=== PATIENT | female | born 1965 | race Hispanic/Latino ===

== ENCOUNTER 2021-10-15 17:12 | Emergency (ER) | payer SELFPAY ==
[~2021-10-15] VITALS: Ht 165.1 cm; Wt 89.1 kg
[~2021-10-15 17:12] MED LIST: ACTOS30 MG PO; GLIPIZIDE10 MG PO; LIPITOR20 M1 PO; LISINOPRIL20 MG PO; METFORMIN500 MG PO
[2021-10-15 17:48] VITALS: BP 165/86
[2021-10-15 18:00] VITALS: BP 146/77
[2021-10-15 18:15] VITALS: BP 147/73
[2021-10-15 18:30] VITALS: BP 142/78
[2021-10-15 18:46] VITALS: BP 158/75
[2021-10-15 18:55] VITALS: BP 158/75
== END 2021-10-15 19:12 | disposition home or self-care (01) | DRG 605 ==
LOC: ED 17:12
DX: S90.122A Contusion of left lesser toe(s) without damage to nail, initial encounter (principal); E11.9 Type 2 diabetes mellitus without complications; E78.5 Hyperlipidemia, unspecified; Z79.84 Long term (current) use of oral hypoglycemic drugs; W22.09XA Striking against other stationary object, initial encounter; Y92.009 Unspecified place in unspecified non-institutional (private) residence as the place of occurrence of the external cause

== ENCOUNTER 2021-11-14 19:03 | Inpatient (IN) | payer SELFPAY ==
[2021-11-14] VITALS (14 sets, daily range): BP systolic 119–200; BP diastolic 60–104
[~2021-11-14] VITALS: Ht 165.1 cm; Wt 86.0 kg
[~2021-11-14 19:03] MED LIST changes: -LIPITOR20 M1 PO; +LIPITOR80 M1 PO; +METFORMIN HCL1000 MG PO; -METFORMIN500 MG PO
[2021-11-14 19:50] LABS: IMMATURE GRANULOCYTES 0.1 % (0.0-5.0); MEAN CORPUSCULAR HGB CONC 32.2 g/dL CAL (32.0-36.0); NEUT# 7.81 thou/uL (2.00-7.15); RED BLOOD COUNT 4.9 mill/uL (4.20-5.60); RED CELL DISTRI WIDTH 13.2 % (11.5-15.5)
[2021-11-14 19:52] LABS: HEMATOCRIT 42.5 % (37.0-47.0); HEMOGLOBIN 13.7 g/dl (12.0-16.0); MEAN CELL VOLUME 86.7 fL CALC (80.0-100.0)
[2021-11-14 20:11] LABS: ALBUMIN 3.9 g/dL (3.2-5.0); AMYLASE 429 u/l (30-110); ANION GAP 13 (6-22 (CALC)); BUN 15 mg/dL (7-17); BUN/CREATININE RATIO 30 (12-20 (CALC)); CARBON DIOXIDE 21 mmol/l (22-30); CHLORIDE 105 mmol/l (95-108); CREATININE 0.5 mg/dL (0.5-1.0); GFR FOR AFR.AMER. > 60 ML/MIN (>=60 (CALC)); GFR OTHER RACES > 60 ML/MIN (>=60 (CALC)); POTASSIUM 3.7 mmol/l (3.5-5.1); SODIUM 136 mmol/l (137-146)
[2021-11-14 20:18] LABS: ALKALINE PHOSPHATASE 183 u/l (38-126); BILIRUBIN, TOTAL 1.7 mg/dL (0.0-1.4); SGOT/AST 181 u/l (14-36)
[2021-11-14 20:19] LABS: LIPASE 6589 u/l (23-300)
[2021-11-14 20:23] LABS: MYOGLOBIN 21 ng/mL (0 - 62)
[2021-11-15 04:56] VITALS: BP 141/62
[2021-11-15 05:51] LABS: HEMATOCRIT 41.1 % (37.0-47.0); HEMOGLOBIN 13.6 g/dl (12.0-16.0); MEAN CELL VOLUME 85.4 fL CALC (80.0-100.0); MEAN CORPUSCULAR HGB 28.3 pG CALC (26.0-32.0); MEAN CORPUSCULAR HGB CONC 33.1 g/dL CAL (32.0-36.0); RED BLOOD COUNT 4.81 mill/uL (4.20-5.60); RED CELL DISTRI WIDTH 13.4 % (11.5-15.5)
[2021-11-15 06:41] LABS: ALBUMIN 3.5 g/dL (3.2-5.0); ALKALINE PHOSPHATASE 206 u/l (38-126); ANION GAP 11 (6-22 (CALC)); BUN 13 mg/dL (7-17); BUN/CREATININE RATIO 27 (12-20 (CALC)); CARBON DIOXIDE 24 mmol/l (22-30); CHLORIDE 105 mmol/l (95-108); CREATININE 0.5 mg/dL (0.5-1.0); GFR FOR AFR.AMER. > 60 ML/MIN (>=60 (CALC)); GFR OTHER RACES > 60 ML/MIN (>=60 (CALC)); MAGNESIUM 1.8 mg/dL (1.6-2.3); POTASSIUM 3.9 mmol/l (3.5-5.1); SODIUM 136 mmol/l (137-146); TOTAL PROTEIN 6.1 g/dL (6.3-8.2)
[2021-11-15 06:42] LABS: BILIRUBIN, TOTAL 3.8 mg/dL (0.0-1.4); SGOT/AST 471 u/l (14-36)
[2021-11-15 07:24] VITALS: BP 168/82
[2021-11-15] MEDS ORDERED: LEVEMIR FL100 UNIT/M SC (12:59)
[2021-11-15] MEDS ORDERED: LEVOTHYROXIN75 MC1 PO (13:01)
[2021-11-15 15:56] VITALS: BP 164/84
[2021-11-15 19:20] VITALS: BP 138/65
[2021-11-15 23:10] VITALS: BP 106/54
[2021-11-16 05:25] LABS: HEMATOCRIT 39.4 % (37.0-47.0); HEMOGLOBIN 12.9 g/dl (12.0-16.0); MEAN CELL VOLUME 86.2 fL CALC (80.0-100.0); MEAN CORPUSCULAR HGB 28.2 pG CALC (26.0-32.0); MEAN CORPUSCULAR HGB CONC 32.7 g/dL CAL (32.0-36.0); NEUT# 5.3 thou/uL (2.00-7.15); RED BLOOD COUNT 4.57 mill/uL (4.20-5.60); RED CELL DISTRI WIDTH 13.7 % (11.5-15.5)
[2021-11-16 05:42] LABS: ALKALINE PHOSPHATASE 220 u/l (38-126); BUN 16 mg/dL (7-17); BUN/CREATININE RATIO 39 (12-20 (CALC)); CARBON DIOXIDE 22 mmol/l (22-30); CHLORIDE 108 mmol/l (95-108); CREATININE 0.4 mg/dL (0.5-1.0); GFR FOR AFR.AMER. > 60 ML/MIN (>=60 (CALC)); GFR OTHER RACES > 60 ML/MIN (>=60 (CALC)); SGOT/AST 164 u/l (14-36); SODIUM 135 mmol/l (137-146); TOTAL PROTEIN 5.6 g/dL (6.3-8.2)
[2021-11-16 05:44] LABS: ANION GAP 9 (6-22 (CALC)); POTASSIUM 3.6 mmol/l (3.5-5.1)
[2021-11-16 06:58] VITALS: BP 160/81
[2021-11-16 10:18] VITALS: BP 160/87
[2021-11-16 15:44] VITALS: BP 162/78
[2021-11-16 19:05] VITALS: BP 137/68
[2021-11-16 19:30] LABS: INTERNATIONAL NORMALIZED RATIO 1.2 RATIO (0.7-1.3); PROTHROMBIN TIME 12.6 SECONDS (9.0-12.5)
[2021-11-17 04:12] VITALS: BP 154/80
[2021-11-17 05:18] LABS: HEMATOCRIT 40.3 % (37.0-47.0); HEMOGLOBIN 13.1 g/dl (12.0-16.0); IMMATURE GRANULOCYTES 0.2 % (0.0-5.0); MEAN CORPUSCULAR HGB 28.3 pG CALC (26.0-32.0); MEAN CORPUSCULAR HGB CONC 32.5 g/dL CAL (32.0-36.0); NEUT# 3.78 thou/uL (2.00-7.15); RED BLOOD COUNT 4.63 mill/uL (4.20-5.60); RED CELL DISTRI WIDTH 13.3 % (11.5-15.5)
[2021-11-17 05:45] LABS: BILIRUBIN, TOTAL 3.8 mg/dL (0.0-1.4); DIRECT BILIRUBIN 1.5 mg/dl (0.0-0.3); TOTAL PROTEIN 5.8 g/dL (6.3-8.2)
[2021-11-17 05:52] LABS: ANION GAP 10 (6-22 (CALC)); BILIRUBIN, TOTAL 3.8 mg/dL (0.0-1.4); BUN 13 mg/dL (7-17); BUN/CREATININE RATIO 34 (12-20 (CALC)); CARBON DIOXIDE 23 mmol/l (22-30); CHLORIDE 103 mmol/l (95-108); CREATININE 0.4 mg/dL (0.5-1.0); DIRECT BILIRUBIN 1.4 mg/dl (0.0-0.3); GFR FOR AFR.AMER. > 60 ML/MIN (>=60 (CALC)); GFR OTHER RACES > 60 ML/MIN (>=60 (CALC)); POTASSIUM 3.4 mmol/l (3.5-5.1); SGOT/AST 138 u/l (14-36); SODIUM 133 mmol/l (137-146); TOTAL PROTEIN 5.7 g/dL (6.3-8.2)
[2021-11-17 06:00] LABS: ALKALINE PHOSPHATASE 348 u/l (38-126)
[2021-11-17 06:59] VITALS: BP 115/60
[2021-11-17 14:53] VITALS: BP 152/79
[2021-11-17 19:14] VITALS: BP 128/73
[2021-11-17 20:51] LABS: URINE BILIRUBIN - DIPSTICK LARGE (NEGATIVE); URINE BLOOD DIPSTICK NEGATIVE (NEGATIVE); URINE COLOR ORANGE; URINE GLUCOSE - DIPSTICK 100 mg/dL (NEGATIVE); URINE KETONE TRACE mg/dL (NEGATIVE); URINE LEUK ESTERASE NEGATIVE (NEGATIVE); URINE NITRITE - DIPSTICK NEGATIVE (Negative); URINE PROTEIN - DIPSTICK TRACE mg/dL (NEG-TRACE); URINE SPECIFIC GRAVITY 1.015
[2021-11-18] VITALS (7 sets, daily range): BP systolic 116–148; BP diastolic 60–78
[2021-11-18 05:10] LABS: HEMOGLOBIN 12.7 g/dl (12.0-16.0); IMMATURE GRANULOCYTES 0.4 % (0.0-5.0); MEAN CELL VOLUME 83.9 fL CALC (80.0-100.0); MEAN CORPUSCULAR HGB CONC 33.4 g/dL CAL (32.0-36.0); NEUT# 3.16 thou/uL (2.00-7.15); RED BLOOD COUNT 4.53 mill/uL (4.20-5.60); RED CELL DISTRI WIDTH 13.3 % (11.5-15.5)
[2021-11-18 05:27] LABS: ALKALINE PHOSPHATASE 372 u/l (38-126); ANION GAP 9 (6-22 (CALC)); BILIRUBIN, TOTAL 3.5 mg/dL (0.0-1.4); BUN 11 mg/dL (7-17); BUN/CREATININE RATIO 28 (12-20 (CALC)); CARBON DIOXIDE 26 mmol/l (22-30); CHLORIDE 103 mmol/l (95-108); CREATININE 0.4 mg/dL (0.5-1.0); DIRECT BILIRUBIN 1.1 mg/dl (0.0-0.3); GFR FOR AFR.AMER. > 60 ML/MIN (>=60 (CALC)); GFR OTHER RACES > 60 ML/MIN (>=60 (CALC)); POTASSIUM 3.3 mmol/l (3.5-5.1); SGOT/AST 106 u/l (14-36); SODIUM 135 mmol/l (137-146); TOTAL PROTEIN 5.8 g/dL (6.3-8.2)
[2021-11-19 04:00] VITALS: BP 152/70
[2021-11-19 04:04] VITALS: BP 152/70
[2021-11-19 05:15] LABS: HEMATOCRIT 36.8 % (37.0-47.0); HEMOGLOBIN 12.3 g/dl (12.0-16.0); IMMATURE GRANULOCYTES 0.2 % (0.0-5.0); MEAN CELL VOLUME 84.8 fL CALC (80.0-100.0); MEAN CORPUSCULAR HGB 28.3 pG CALC (26.0-32.0); MEAN CORPUSCULAR HGB CONC 33.4 g/dL CAL (32.0-36.0); NEUT# 3.11 thou/uL (2.00-7.15); RED BLOOD COUNT 4.34 mill/uL (4.20-5.60); RED CELL DISTRI WIDTH 13.4 % (11.5-15.5)
[2021-11-19 05:33] LABS: ALBUMIN 2.8 g/dL (3.2-5.0); ALKALINE PHOSPHATASE 405 u/l (38-126); ANION GAP 7 (6-22 (CALC)); BILIRUBIN, TOTAL 3.2 mg/dL (0.0-1.4); BUN 11 mg/dL (7-17); BUN/CREATININE RATIO 30 (12-20 (CALC)); CARBON DIOXIDE 28 mmol/l (22-30); CHLORIDE 104 mmol/l (95-108); CREATININE 0.4 mg/dL (0.5-1.0); GFR FOR AFR.AMER. > 60 ML/MIN (>=60 (CALC)); GFR OTHER RACES > 60 ML/MIN (>=60 (CALC)); POTASSIUM 3.3 mmol/l (3.5-5.1); SGOT/AST 91 u/l (14-36); SODIUM 136 mmol/l (137-146); TOTAL PROTEIN 5.5 g/dL (6.3-8.2)
[2021-11-19 06:10] VITALS: BP 162/82
[2021-11-19 14:59] VITALS: BP 167/75
[2021-11-19 19:05] VITALS: BP 149/68
[2021-11-19 19:31] VITALS: BP 149/68
[2021-11-20 03:54] VITALS: BP 132/71
[2021-11-20 04:28] VITALS: BP 132/71
[2021-11-20 05:29] LABS: HEMATOCRIT 37.1 % (37.0-47.0); IMMATURE GRANULOCYTES 0.3 % (0.0-5.0); MEAN CELL VOLUME 85.5 fL CALC (80.0-100.0); MEAN CORPUSCULAR HGB 27.6 pG CALC (26.0-32.0); MEAN CORPUSCULAR HGB CONC 32.3 g/dL CAL (32.0-36.0); NEUT# 3.6 thou/uL (2.00-7.15); RED BLOOD COUNT 4.34 mill/uL (4.20-5.60); RED CELL DISTRI WIDTH 13.6 % (11.5-15.5)
[2021-11-20 06:03] LABS: ALBUMIN 2.7 g/dL (3.2-5.0); ALKALINE PHOSPHATASE 429 u/l (38-126); ANION GAP 8 (6-22 (CALC)); BILIRUBIN, TOTAL 2.2 mg/dL (0.0-1.4); BUN 10 mg/dL (7-17); BUN/CREATININE RATIO 29 (12-20 (CALC)); CARBON DIOXIDE 27 mmol/l (22-30); CHLORIDE 105 mmol/l (95-108); CREATININE 0.4 mg/dL (0.5-1.0); GFR FOR AFR.AMER. > 60 ML/MIN (>=60 (CALC)); GFR OTHER RACES > 60 ML/MIN (>=60 (CALC)); POTASSIUM 3.8 mmol/l (3.5-5.1); SGOT/AST 67 u/l (14-36); SODIUM 136 mmol/l (137-146); TOTAL PROTEIN 5.4 g/dL (6.3-8.2)
[2021-11-20 06:55] VITALS: BP 141/75
[2021-11-20 15:28] VITALS: BP 157/75
[2021-11-20 16:19] VITALS: BP 162/81
[2021-11-20 19:25] VITALS: BP 162/73
[2021-11-21 04:30] VITALS: BP 138/58
[2021-11-21 04:59] LABS: HEMATOCRIT 38.7 % (37.0-47.0); HEMOGLOBIN 12.2 g/dl (12.0-16.0); IMMATURE GRANULOCYTES 1.3 % (0.0-5.0); MEAN CELL VOLUME 89.6 fL CALC (80.0-100.0); MEAN CORPUSCULAR HGB 28.2 pG CALC (26.0-32.0); MEAN CORPUSCULAR HGB CONC 31.5 g/dL CAL (32.0-36.0); NEUT# 6.98 thou/uL (2.00-7.15); RED BLOOD COUNT 4.32 mill/uL (4.20-5.60); RED CELL DISTRI WIDTH 14.6 % (11.5-15.5)
[2021-11-21 05:23] LABS: ALBUMIN 2.8 g/dL (3.2-5.0); ALKALINE PHOSPHATASE 393 u/l (38-126); ANION GAP 9 (6-22 (CALC)); BILIRUBIN, TOTAL 2.6 mg/dL (0.0-1.4); BUN 9 mg/dL (7-17); BUN/CREATININE RATIO 19 (12-20 (CALC)); CARBON DIOXIDE 28 mmol/l (22-30); CHLORIDE 100 mmol/l (95-108); CREATININE 0.5 mg/dL (0.5-1.0); GFR FOR AFR.AMER. > 60 ML/MIN (>=60 (CALC)); GFR OTHER RACES > 60 ML/MIN (>=60 (CALC)); MAGNESIUM 1.9 mg/dL (1.6-2.3); POTASSIUM 4.1 mmol/l (3.5-5.1); SGOT/AST 114 u/l (14-36); SODIUM 133 mmol/l (137-146); TOTAL PROTEIN 5.6 g/dL (6.3-8.2)
[2021-11-21 05:34] LABS: DIRECT BILIRUBIN 0.1 mg/dl (0.0-0.3)
[2021-11-21 06:49] VITALS: BP 138/70
[2021-11-21 08:35] VITALS: BP 138/70
[2021-11-21] MEDS ORDERED: LEVEMIR FL100 UNIT/M SC (14:17)
[2021-11-21] MEDS ORDERED: LORTAB 7.57.5 MG PO (14:22)
== END 2021-11-21 17:00 | disposition home or self-care (01) | DRG 419 ==
LOC: ED 19:03 → ED-I 21:20 → ED 21:44 → MS2 21:45
PROVIDERS: Emergency Medicine; Nurse Practitioner; ADMIT Hospitalist; ATTEND Hospitalist
PROC: 0FT44ZZ Resection of Gallbladder, Percutaneous Endoscopic Approach (ICD-10-PCS; principal; 2021-11-20)
PROC: BF001ZZ Plain Radiography of Bile Ducts using Low Osmolar Contrast (ICD-10-PCS; 2021-11-20)
DX: K85.10 Biliary acute pancreatitis without necrosis or infection (principal); K80.70 Calculus of gallbladder and bile duct without cholecystitis without obstruction; E11.65 Type 2 diabetes mellitus with hyperglycemia; I10 Essential (primary) hypertension; E78.5 Hyperlipidemia, unspecified; E03.9 Hypothyroidism, unspecified; K59.00 Constipation, unspecified; T38.3X6A Underdosing of insulin and oral hypoglycemic [antidiabetic] drugs, initial encounter; Z91.128 Patient's intentional underdosing of medication regimen for other reason; Z79.4 Long term (current) use of insulin; Z79.84 Long term (current) use of oral hypoglycemic drugs; Z20.822 Contact with and (suspected) exposure to COVID-19; Z91.11 Patient's noncompliance with dietary regimen
CPT/HCPCS: J0131; J1610; J1650; Q9967; S0164

== ENCOUNTER 2022-03-17 18:50 | Emergency (ER) | payer BC ==
[~2022-03-17] VITALS: Ht 165.1 cm; Wt 86.0 kg
[~2022-03-17 18:50] MED LIST changes: +ATORVASTATIN CA20 MG PO; +LEVEMIR FL100 UNIT/M SC; +LEVOTHYROXIN75 MC1 PO; +LORTAB 7.57.5 MG PO
[2022-03-17] MEDS ORDERED: BACTRIM DS1 TAB PO (19:37)
[2022-03-17 19:45] VITALS: BP 150/78
== END 2022-03-17 21:01 | disposition home or self-care (01) | DRG 603 ==
LOC: ED 18:50
PROC: 0H9AXZZ Drainage of Inguinal Skin, External Approach (ICD-10-PCS; principal; 2022-03-17)
DX: L02.215 Cutaneous abscess of perineum (principal); I10 Essential (primary) hypertension; E11.9 Type 2 diabetes mellitus without complications; E78.5 Hyperlipidemia, unspecified; Z79.84 Long term (current) use of oral hypoglycemic drugs; Z79.4 Long term (current) use of insulin

== ENCOUNTER 2022-03-19 15:15 | Observation (INO) | payer BC ==
[~2022-03-19] VITALS: Ht 165.1 cm; Wt 90.0 kg
[2022-03-19] VITALS (8 sets, daily range): BP systolic 95–139; BP diastolic 45–64
[~2022-03-19 15:15] MED LIST changes: +BACTRIM DS1 TAB PO
[2022-03-19 17:24] LABS: HEMATOCRIT 43.7 % (37.0-47.0); IMMATURE GRANULOCYTES 0.4 % (0.0-5.0); MEAN CORPUSCULAR HGB 27.6 pG CALC (26.0-32.0); NEUT# 4.93 thou/uL (2.00-7.15); RED BLOOD COUNT 5.22 mill/uL (4.20-5.60); RED CELL DISTRI WIDTH 13.2 % (11.5-15.5)
[2022-03-19 17:28] LABS: HEMOGLOBIN 14.4 g/dl (12.0-16.0); MEAN CELL VOLUME 83.7 fL CALC (80.0-100.0)
[2022-03-19 17:42] LABS: ALBUMIN 3.5 g/dL (3.2-5.0); ALKALINE PHOSPHATASE 117 u/l (38-126); ANION GAP 11 (6-22 (CALC)); BILIRUBIN, TOTAL 0.3 mg/dL (0.0-1.4); BUN 20 mg/dL (7-17); BUN/CREATININE RATIO 28 (12-20 (CALC)); CARBON DIOXIDE 26 mmol/l (22-30); CHLORIDE 104 mmol/l (95-108); CREATININE 0.7 mg/dL (0.5-1.0); GFR FOR AFR.AMER. > 60 ML/MIN (>=60 (CALC)); GFR OTHER RACES > 60 ML/MIN (>=60 (CALC)); POTASSIUM 4.6 mmol/l (3.5-5.1); SGOT/AST 22 u/l (14-36); SODIUM 137 mmol/l (137-146); TOTAL PROTEIN 6.7 g/dL (6.3-8.2)
[2022-03-20] VITALS (9 sets, daily range): BP systolic 91–145; BP diastolic 48–73
[2022-03-21 04:13] VITALS: BP 139/64
[2022-03-21 06:22] VITALS: BP 147/59
[2022-03-21 11:04] VITALS: BP 139/57
[2022-03-21] MEDS ORDERED: BACTRIM DS1 TAB PO (13:49)
[2022-03-21] MEDS ORDERED: PERCOCET 5/321 COMBO PO (13:50)
== END 2022-03-21 16:30 | disposition home or self-care (01) | DRG 747 ==
LOC: ED 15:15 → ED-I 16:57 → ED 17:35 → MS2 17:36
PROVIDERS: Nurse Practitioner; ADMIT Surgery; ATTEND Surgery
PROC: 0U9M0ZZ Drainage of Vulva, Open Approach (ICD-10-PCS; principal; 2022-03-20)
PROC: 0JBB0ZZ Excision of Perineum Subcutaneous Tissue and Fascia, Open Approach (ICD-10-PCS; 2022-03-20)
DX: N76.4 Abscess of vulva (principal); I10 Essential (primary) hypertension; E11.9 Type 2 diabetes mellitus without complications; E78.5 Hyperlipidemia, unspecified; Z79.84 Long term (current) use of oral hypoglycemic drugs; Z79.4 Long term (current) use of insulin; Z20.822 Contact with and (suspected) exposure to COVID-19
CPT/HCPCS: G0378; J0131; J1650

== ENCOUNTER 2024-05-26 14:19 | Emergency (ER) | payer BC ==
[~2024-05-26] VITALS: Ht 165.1 cm; Wt 95.2 kg
[2024-05-26] VITALS (17 sets, daily range): BP systolic 130–165; BP diastolic 61–78
[~2024-05-26 14:19] MED LIST changes: +PERCOCET 5/321 COMBO PO
[2024-05-26 15:24] LABS: BASO% 0.9 % (0-3); EOS% 1.7 % (0-8); IMMATURE GRANULOCYTES 0.1 % (0.0-5.0); LYMPH% 22.6 % (15-41); MEAN CELL VOLUME 84.4 fL CALC (80.0-100.0); MEAN CORPUSCULAR HGB 27.5 pG CALC (26.0-32.0); MEAN CORPUSCULAR HGB CONC 32.6 g/dL CAL (32.0-36.0); MONO% 5.9 % (2-13); NEUT# 5.65 thou/uL (2.00-7.15); NEUT% 68.8 % (42-76); RED BLOOD COUNT 4.43 mill/uL (4.20-5.60); RED CELL DISTRI WIDTH 13.5 % (11.5-15.5)
[2024-05-26 15:26] LABS: ALBUMIN 3.7 g/dL (3.2-5.0); ALKALINE PHOSPHATASE 103 u/l (38-126); ANION GAP 10 (6-22 (CALC)); BUN 18 mg/dL (7-17); BUN/CREATININE RATIO 29 (12-20 (CALC)); CARBON DIOXIDE 28 mmol/l (22-30); CHLORIDE 103 mmol/l (95-108); CREATININE 0.6 mg/dL (0.5-1.0); ESTIMATED GFR 103 ML/MIN (>=90 (CALC)); POTASSIUM 4.2 mmol/l (3.5-5.1); SODIUM 137 mmol/l (137-146); TOTAL PROTEIN 6.7 g/dL (6.3-8.2)
[2024-05-26 15:39] LABS: BILIRUBIN, TOTAL 0.8 mg/dL (0.02-1.3); SGOT/AST 39 u/l (14-36)
[2024-05-26 15:40] LABS: HEMATOCRIT 37.4 % (37.0-47.0); HEMOGLOBIN 12.2 g/dl (12.0-16.0)
[2024-05-26] MEDS ORDERED: ZPAK PO (19:05)
[2024-05-26] MEDS ORDERED: VENTOLIN HFA108 MCG PO (19:05)
== END 2024-05-26 18:59 | disposition home or self-care (01) | DRG 153 ==
LOC: ED 14:19
PROVIDERS: Family Medicine
DX: J06.9 Acute upper respiratory infection, unspecified (principal); R91.1 Solitary pulmonary nodule; I10 Essential (primary) hypertension; E11.9 Type 2 diabetes mellitus without complications; E78.5 Hyperlipidemia, unspecified; Z79.84 Long term (current) use of oral hypoglycemic drugs; Z79.4 Long term (current) use of insulin; Z20.822 Contact with and (suspected) exposure to COVID-19
CPT/HCPCS: Q9967